=== PATIENT | male | born 1930 | race Caucasian/White ===

== ENCOUNTER 2019-04-05 13:21 | Emergency (ER) | payer MEDICARE ==
[~2019-04-05] VITALS: Ht 182.9 cm; Wt 90.7 kg
--- NOTE | 2019-04-05 13:59 | PHYS DOC ---
Past Medical History Past Medical History: A-Fib, Anemia, Anxiety, CHF, Constipation, GERD, High Cholesterol, Hypertension, Hypothyroid, Renal Disease Past Surgical History: No Surgical History Alcohol Use: None Drug Use: None Adult General Chief Complaint Chief Complaint: MECHANICAL FALL HPI HPI Patient is an 88-year-old male who presents to the emergency department for evaluation, from a nursing facility across the street. He was recently hospitalized at for a left leg hematoma, which has resulted in decreased mobility and increasing weakness. He has a history of warfarin use, apparently secondary to atrial fibrillation according to his chart, but reportedly was taken off his warfarin within the past 2 days. He had an INR of 3.2 on 04/03. The patient was placed into a reclining chair at the nursing facility today, and then was observed to have fallen on the floor. The fall was reportedly unwitnessed. He did sustain a contusion on the left side of his fore head/cranium, as well as a skin tear on his left elbow. He also complains of some coccyx pain. He admits to some cervical spine pain, but denies any other painful areas or injuries. His left leg, which had started draining, after attempts to drain the hematoma percutaneously, is wrapped and his wound is being managed by staff at the facility and he appears to have a fresh dressing on his wound. He denies significant pain in this area at this time. There are no alleviating or exacerbating factors to his symptoms otherwise. According to the nursing facility, there was some concern about the patient's mental status, but his daughter and are both at the bedside, and they stated the patient's mental status is currently not significantly different than his most recent baseline. Review of Systems Review of Systems Constitutional: Denies fever or chills [] Eyes: Denies change in visual acuity, redness, or eye pain [] HENT: Denies nasal congestion or sore throat [] Respiratory: Denies cough or shortness of breath [] Cardiovascular: The patient denies any shortness of breath, chest pain, palpitations, or orthopnea [] GI: Denies abdominal pain, nausea, vomiting, bloody stools or diarrhea [] : Denies dysuria or hematuria [] Musculoskeletal: Denies back pain or joint pain, except as noted in the history of present illness [] Integument: Denies rash or skin lesions [] Neurologic: Denies headache, focal weakness or sensory changes [] Endocrine: Denies polyuria or polydipsia [] All other systems were reviewed and found to be within normal limits, except as documented in this note. Allergies Allergies Allergies Coded Allergies Type Severity Reaction Last Updated Verified No Known Drug Allergies 04/05/19 No Physical Exam Physical Exam PHYSICAL EXAM: CONSTITUTIONAL: Well developed, well nourished HEAD: normocephalic, atraumatic EENT: PERRL, EOMI. Conjunctivae normal color, sclerae non-icteric; moist mucous membranes. NECK: Supple, there is mild tenderness to palpation of the cervical spine without step-off.. LUNGS: Lungs CTA, breathing even and unlabored. Normal air movement. HEART: Regular rate and rhythm, no murmur CHEST: No deformity; non-tender ABDOMEN: The abdomen is soft, and non-tender, no masses or bruits. EXTREM: There is a skin tear on the left elbow with mild bony tenderness to pal pation in the area without deformity. The remainder the exterior is atraumatic, with Normal ROM; no deformity, no calf tenderness. Normal pulses palpable in all extremities. There is mild bilateral pedal edema. The hips and pelvis are nontender with normal range of motion in the hips bilaterally. There is a wrap dressing on the left foot and leg. SKIN: No rash; no diaphoresis NEURO: Alert; normal speech and cognition; CN's grossly intact; strength grossly intact without focal deficit. BACK: No CVA TTP.There is no bony tenderness to palpation of the thoracic or lumbar spine. There is mild tenderness to palpation in the sacral area. Current Patient Data Vital Signs Vital Signs Date Time Temp Pulse Resp B/P (MAP) Pulse Ox O2 Delivery O2 Flow Rate FiO2 04/05/19 13:36 98.6 78 16 112/67 (82) 92 Room Air 98.6 EKG EKG [] Radiology/Procedures Radiology/Procedures PROCEDURE: CT HEAD AND CERVICAL SPINE WO CT HEAD AND CERVICAL SPINE WO Date: 04/05/2019 1:51 PM Clinical Indication: Comparison: None. Technique: 5 mm axial tomographic images were obtained of the head without contrast. These were viewed on brain and bone windows. Noncontrast CT of the cervical spine was performed. Sagittal and coronal reformats were performed and evaluated. One or more of the following dose reduction techniques were utilized: Automated exposure control (AEC), Adjustment of mA and/or kV according to patient size, Use of iterative reconstruction technique such as ASiR, CT scan done according to ALARA and image gently/image wisely HEAD FINDINGS: Mild generalized cerebral and cerebellar volume loss. Mild nonspecific periventricular hypoattenuation, most commonly seen with chronic small vessel ischemic disease. No intra- or extra-axial mass or fluid collection. No acute hemorrhage. The ventricles are normal in size, shape, and morphology. The cagle-white matter junction is normal. The basilar cisterns are patent. The visualized paranasal sinuses are normal. The visualized portions of the orbits and globes are normal. The mastoid air cells are clear. No aggressive osseous lesion or fracture. Left frontal scalp hematoma. CERVICAL SPINE FINDINGS: The cervical spine is normally aligned. No acute fracture. No aggressive lytic or blastic osseous lesions. Moderate multilevel degenerative disc space height loss. Multilevel spinal canal stenosis secondary to disc protrusions and marginal osteophytes, worst and moderate at C5-6. Multilevel mild and moderate neuroforaminal narrowing secondary to uncovertebral arthrosis. Multilevel moderate facet arthrosis. The thyroid gland is atrophic. No cervical lymphadenopathy. Bilateral carotid atherosclerosis. The visualized aerodigestive tract is normal. The visualized portions of the lungs are clear. IMPRESSION: 1. No acute intracranial process. Left frontal scalp hematoma. 2. No acute cervical spine fracture.[] ER physician preliminary sacrum x-ray interpretation: No acute fracture. Here physician preliminary left elbow interpretation: No acute fracture. Course & Med Decision Making Course & Med Decision Making Pertinent Labs and Imaging studies reviewed. (See chart for details) [] 3:35 PM: The patient's condition remains stable. I discussed test results with the patient and the family, the patient's wounds will be dressed, we discussed the need for close PCP follow-up, and return precautions in detail. Dragon Disclaimer Dragon Disclaimer This electronic medical record was generated, in whole or in part, using a voice recognition dictation system. Departure Departure Impression: Primary Impression: Closed head injury Additional Impressions: Anticoagulated on Coumadin Skin tear Elbow contusion Disposition: 03 TRANSFER SNF Condition: STABLE Referrals: NO PCP (PCP) Patient Instructions: Fall Prevention and Home Safety, Fall Prevention in Hospitals, Head Injury, Adult, Skin Tear Care Problem Qualifiers KEN LONDON MD Apr 05, 2019 13:59
--- NOTE | 2019-04-05 15:02 | RAD ---
CT HEAD AND CERVICAL SPINE WO Date: 04/05/2019 1:51 PM Clinical Indication: Comparison: None. Technique: 5 mm axial tomographic images were obtained of the head without contrast. These were viewed on brain and bone windows. Noncontrast CT of the cervical spine was performed. Sagittal and coronal reformats were performed and evaluated. One or more of the following dose reduction techniques were utilized: Automated exposure control (AEC), Adjustment of mA and/or kV according to patient size, Use of iterative reconstruction technique such as ASiR, CT scan done according to ALARA and image gently/image wisely HEAD FINDINGS: Mild generalized cerebral and cerebellar volume loss. Mild nonspecific periventricular hypoattenuation, most commonly seen with chronic small vessel ischemic disease. No intra- or extra-axial mass or fluid collection. No acute hemorrhage. The ventricles are normal in size, shape, and morphology. The cagle-white matter junction is normal. The basilar cisterns are patent. The visualized paranasal sinuses are normal. The visualized portions of the orbits and globes are normal. The mastoid air cells are clear. No aggressive osseous lesion or fracture. Left frontal scalp hematoma. CERVICAL SPINE FINDINGS: The cervical spine is normally aligned. No acute fracture. No aggressive lytic or blastic osseous lesions. Moderate multilevel degenerative disc space height loss. Multilevel spinal canal stenosis secondary to disc protrusions and marginal osteophytes, worst and moderate at C5-6. Multilevel mild and moderate neuroforaminal narrowing secondary to uncovertebral arthrosis. Multilevel moderate facet arthrosis. The thyroid gland is atrophic. No cervical lymphadenopathy. Bilateral carotid atherosclerosis. The visualized aerodigestive tract is normal. The visualized portions of the lungs are clear. IMPRESSION: 1. No acute intracranial process. Left frontal scalp hematoma. 2. No acute cervical spine fracture. Electronically signed by: Justin Rose MD (04/05/2019 2:59 PM) [facility]
[2019-04-05 15:30] VITALS: BP 99/63
--- NOTE | 2019-04-05 15:34 | RAD ---
Sacrum x-rays 3 views HISTORY: Fall, injury. FINDINGS: Mild bone spurring at the sacrococcygeal joint the lateral view. There is no discrete fracture of the sacrum or coccyx evident although based on technique and overlapping bowel gas lucencies and soft tissue densities, a small nondisplaced fracture would be difficult to detect. Sacroiliac joints intact. Right hip arthritis is noted. IMPRESSION: No acute osseous injury. Left elbow x-rays 3 views HISTORY: Fall, injury, pain. FINDINGS: There is either a skinfold or soft tissue laceration posterior elbow adjacent of the ulna olecranon and triceps brachii tendon. There are small areas of heterotopic ossification of the triceps brachii tendon typical of chronic tendinopathy. No abnormal elevation of the fat pads to suggest a joint effusion or radiographically occult fracture. No fracture or dislocation evident. Chronic ossicle at the medial humeral epicondyle likely due to tendinopathy. Mild spurring at the ulnohumeral joint from osteoarthritis. IMPRESSION: No acute osseous injury. See discussion above. Electronically signed by: Navarro Boyd MD (04/05/2019 3:31 PM) [facility]
== END 2019-04-05 18:36 | disposition home or self-care (01) ==
LOC: ER 13:21
DX: S51.012A Laceration without foreign body of left elbow, initial encounter (principal); S00.83XA Contusion of other part of head, initial encounter; I48.91 Unspecified atrial fibrillation; I11.0 Hypertensive heart disease with heart failure; I50.9 Heart failure, unspecified; K21.9 Gastro-esophageal reflux disease without esophagitis; E78.00 Pure hypercholesterolemia, unspecified; E03.9 Hypothyroidism, unspecified; F41.9 Anxiety disorder, unspecified; Z79.01 Long term (current) use of anticoagulants; W18.39XA Other fall on same level, initial encounter; Y93.89 Activity, other specified; Y92.89 Other specified places as the place of occurrence of the external cause; Y99.8 Other external cause status
CPT/HCPCS: 70450; 72125; 72220; 73080; 99284